=== PATIENT | male | born 1980 | race Caucasian/White ===

== ENCOUNTER 2022-07-23 14:50 | Emergency (ER) | payer OTHER ==
[~2022-07-23] VITALS: Ht 182.9 cm; Wt 117.9 kg
[2022-07-23] MEDS ORDERED: LISINOPRIL20 MG PO (15:02)
[2022-07-23] MEDS ORDERED: GABAPENTIN600 MG PO (15:02)
[2022-07-23] MEDS ORDERED: CYMBALTA30 MG PO (15:02)
[2022-07-23] MEDS ORDERED: AMOX TR-K CLV1 EAC1 PO (15:33)
== END 2022-07-23 15:59 | disposition home or self-care (01) ==
LOC: ED 14:50
DX: S61.451A Open bite of right hand, initial encounter (principal); L08.9 Local infection of the skin and subcutaneous tissue, unspecified; I10 Essential (primary) hypertension; Z23 Encounter for immunization; Z79.899 Other long term (current) drug therapy; W54.0XXA Bitten by dog, initial encounter
CPT/HCPCS: 90471; 90715; 96372; 99283-25; J0696